=== PATIENT | female | born 1935 | race Caucasian/White ===

== ENCOUNTER 2016-08-21 10:47 | Inpatient (IN) | payer MEDICARE ==
[2016-08-21] VITALS (7 sets, daily range): BP systolic 116–156; BP diastolic 62–73; PULSE 68–83; RESP 15–20; O2SAT 96–100
[~2016-08-21] VITALS: Ht 157.5 cm; Wt 63.2 kg
[~2016-08-21 10:47] MED LIST: HYDR-4003 PO; HYDR12.5 PO; LISI2.5T66 PO; PROZ20 PO; SYN75 PO
--- NOTE | 2016-08-21 10:56 | ED.REPORT ---
HPI-Abd Pain F 40 and Over Date of Service August 21, 2016 ED Provider: History of Present Illness: was in [place] returned this am, vomiting, abd distention started in [place], 08/24 not passing gas, davin uriarte years ago. eliana is primary care. no balance mobility issues, fall risk Nursing Notes Stated Complaint: ABDOMINAL PAIN Chief Complaint: Female Abdominal Pain Nursing Notes Reviewed: Yes Allergies: Coded Allergies: No Known Allergies (Verified Allergy, Severe, 08/21/16) Scheduled Aspirin (Aspirin) 81 Mg Tablet 81 MG PO DAILY Celecoxib (Celecoxib) 200 Mg Capsule 200 MG PO DAILY Cholecalciferol (Vitamin D3) (Vitamin D3) 2,000 Unit Capsule 2,000 UNIT PO DAILY Docusate Sodium (Colace) 100 Mg Capsule 200 MG PO DAILY Fluoxetine (Prozac) 20 Mg Capsule 20 MG PO DAILY Gabapentin (Gabapentin) 300 Mg Capsule 300 MG PO HS Levothyroxine (Synthroid) 75 Mcg Tablet 75 MCG PO DAILY Multivitamin/Iron/Folic Acid (Centrum Complete Multivit Tab) 1 Each Tablet 1 TAB PO DAILY Propranolol ER (Propranolol ER) 60 Mg Cap.sa.24h 60 MG PO DAILY Vitamin E Mixed (Vitamin E) 400 Unit Capsule 400 UNIT PO DAILY Scheduled PRN ([Citrucel]) 1 TAB PO DIRECTED PRN PRN For Constipation Acetaminophen (Acetaminophen) 325 Mg Tablet 650 MG PO NOON PRN PRN For Pain Miscellaneous Medications Triamterene/HCTZ 75-50 mg (Triamterene/HCTZ 75-50 mg) 1 Each Tablet 1 TABLET PO General Time Seen by MD: 10:56 Chief Complaint Abdominal pain Hx Obtained From: Patient Sudden in Onset?: No Past Medical History Past Medical History Reports: Hypertension, Denies: Asthma, Diabetes mellitus Past Surgical History back surgery years ago davin uriarte Reports: Cholecystectomy Smoking History Former Smoker (quit at 41 years ago 08/21/2016) Social History etoh 3 to 4 times a week Occupation lives with daughter, passed 7 months ago. 08/21/2016 Ambulatory Status Independent Review of Systems Basic Review of Systems Eyes: Vision NL, No discharge ENT: Hearing NL, No pain, No nasal congestion, No pharyngeal pain Hematologic: No bleeding, No bruising Endocrine: No cold intolerance, No heat intolerance, No weight gain, No weight loss Skin: No bruising, No rash, No itch Allergy / Immune: No allergy Neurologic: NL mental status, No weakness, No numbness Psychiatric: Normal thought content Physical Exam Vital Signs Vital Signs (First) Date Time Temp Pulse Resp B/P Pulse Ox O2 Delivery O2 Flow Rate FiO2 08/21/16 10:51 36.2 83 15 125/62 100 08/21/16 13:44 Room Air Initial VS: Reviewed, Vital signs normal Head / Eyes: Atraumatic, Normocephalic, PERRL Skin: Warm, Dry, No cyanosis Psychiatric: Mood/affect normal, Behavior normal, Normal thought content General/Constitutional: Awake, Alert, No acute distress, Well appearing, Well developed, Well hydrated, Not toxic appearing Respiratory / Chest: Atraumatic, Breath sounds NL, Breath sounds = bilat, No respiratory distress Cardiovascular: Heart rate NL, Regular rhythm, Heart sounds NL, No gallop Tenderness/Guarding/Rebound: Positive: Guarding voluntary, Tender diffuse Bowel Sounds / Distention: Positive: Distention moderate Interpretation & Diagnostics Interpretation & Diagnostics: normal EKG Lab Results Interpretation Result Diagram: 08/21/16 1055 08/21/16 1055 Test 08/21/16 10:55 White Blood Count 18.0th/mm3 (3.8-10.1) Red Blood Count 3.55mil/mm3 (3.90-5.20) Hemoglobin 12.0g/dL (12.0-15.6) Hematocrit 35.6% (35.0-46.0) Mean Corpuscular Volume 100.3fL (81-100) Mean Corpuscular Hemoglobin 33.8pg (27.0-35.0) Mean Corpuscular Hemoglobin Concent 33.7% (32.0-37.0) Red Cell Distribution Width 12.7% (12.3-15.4) Platelet Count 276bil/L (150-400) Neutrophils (%) (Auto) 86.7% (40-74) Lymphocytes (%) (Auto) 7.5% (14-46) Monocytes (%) (Auto) 4.9% (4-12) Eosinophils (%) (Auto) 0.4% (0-5) Basophils (%) (Auto) 0.2% (0-3) Sodium Level 135mEq/L (134-144) Potassium Level 3.5mEq/L (3.5-5.2) Chloride Level 92mEq/L (97-108) Carbon Dioxide Level 26mmol/L (18-29) Blood Urea Nitrogen 45mg/dL (8-27) Creatinine 1.72mg/dL (0.57-1.00) Estimat Glomerular Filtration Rate 41mL/min (>59) Glucose Level 116mg/dL (60-99) Lactic Acid Level 2.0mmol/L (0.4-2.0) Calcium Level 11.4mg/dL (8.5-10.1) Total Bilirubin 0.9mg/dL (0.0-1.2) Aspartate Amino Transf (AST/SGOT) 52U/L (0-50) Alanine Aminotransferase (ALT/SGPT) 48U/L (0-32) Alkaline Phosphatase 60U/L (25-165) Troponin T 0.027ug/L (0.0-0.011) Total Protein 7.5g/dL (6.4-8.4) Albumin 4.3g/dL (3.4-5.0) Thyroid Stimulating Hormone (TSH) 3.080uIU/mL (0.450-4.500) X-Ray Interpretation Xray Interpretation: PROCEDURE: X-RAY ACUTE ABDOMINAL SERIES ([id number]) INDICATIONS: ? SBO TECHNIQUE: One view chest and two views of the abdomen were acquired. COMPARISON: None. FINDINGS: Surgical changes and devices: Lumbosacral fusion. Cholecystectomy clips. Chest: Mild patchy left basilar opacity. Heart size is normal. No pleural effusions. No pneumoperitoneum. Abdomen: Mildly distended small bowel loops within the right lower quadrant with air fluid levels are present. No suspicious calcifications. Visualized solid organ contours appear normal. Bones: No suspicious bony lesions. IMPRESSION: 1. Mildly distended small bowel loops with air-fluid levels, consistent with small bowel obstruction. 2. Left basilar atelectasis versus pneumonia. Dictated by: Daniel Mason M.D. on 08/21/2016 at 12:04 Approved by: Daniel Mason M.D. on 08/21/2016 at 12:05 CT Abd / Pelvis Interpretation ROCEDURE: CT ABDOMEN AND PELVIS WITHOUT CONTRAST ([id number]) INDICATIONS: ABd pain ?SBO TECHNIQUE: After the administration of oral contrast, 5 mm thick sections acquired from the diaphragms to the symphysis. 5 mm coronal and sagittal reformats were performed. For radiation dose reduction, the following was used: automated exposure control, adjustment of mA and/or kV according to patient size. COMPARISON: [facility], CR, XR ABD ACUTE SERIES 3VW, 08/21/2016, 11:30. [facility], CT, ABD/PELVIS W/CON (PNL), 07/03/2007, 12:10. FINDINGS: Image quality: Excellent. ABDOMEN: Lung bases: Bibasilar patchy opacities are present. Heart size is normal. Solid organs: Liver and spleen are normal in size. Gallbladder is surgically absent. Pancreas is normal in size. No adrenal nodules. Both kidneys are normal in size, without hydronephrosis or nephrolithiasis. Peritoneum and bowel: The stomach is moderately distended. The duodenum is mildly distended. There are multiple moderately distended loops of mid small bowel. There is a transition between distended and nondistended distal small bowel within the right posterior pelvis at the site of a focal region of small bowel thickening. Distal small bowel is nondistended. Appendix is normal. The colon is nondistended and demonstrates moderate diffuse stool. Diverticulosis of the descending and sigmoid colon is present. No free fluid or air. Nodes and vessels: No retroperitoneal or mesenteric adenopathy by size criteria. Aorta and inferior vena cava are normal in size. Miscellaneous: No ventral hernias. PELVIS: Genitourinary: Bladder wall thickness is normal. Miscellaneous: No inguinal hernias or adenopathy. Bones: No suspicious bony lesions. No vertebral body compression fractures. IMPRESSION: 1. Small bowel obstruction, with transition point present at a site of thickened small bowel, consistent with ischemia versus infection versus inflammation versus neoplasm. 2. Normal appendix. 3. Bibasilar atelectasis versus pneumonia. Dictated by: Daniel Mason M.D. on 08/21/2016 at 13:23 Approved by: Daniel Mason M.D. on 08/21/2016 at 13:26 Re-Eval/Medical Decision Med Decision/Clinical Course 81 year old female presents to the ER with diffuse abd pain. Patient was vacationing in [place] and started vomiting with abd pain. X-ray indicates SBO. Labs show wbc of 18 with lactic acid at 2. Consult with Dr. Alicea at to choice of antibiotics zosyn and flagyl. Navya is admitted to the hospital Consultation : Referral / Consult Name: Mart Alamo MD Consulted With: Surgeon Call Returned at: 14:15 Theatrical Rigger: Agrees with plan Note: I (Dr. Christian) discussed case with surgeon Dr. Alamo. Surgery will follow and consult. Discharge & Departure Primary Impression: Small bowel obstruction Additional Impressions: Acute kidney injury Elevated troponin Disposition: ADMITTED TO HOSPITAL Referrals: Eliseo Rodríguez MD (PCP) EDSupervising Provider for APC: Adelso Christian MD Attending Statement This patient was initially seen by the mid-level provider. However I personally interviewed and examined this patient. Some pleasant 81-year-old female with a history of prior cholecystectomy without prior diagnosis of bowel obstruction due some abdominal discomfort starting Monday night while ago while in [place]. Symptoms worsened on Monday she developed a low-grade fever, abdominal pain and vomiting, she reports no flatus -she does, she passed a "pellets" of stool this morning, she does continue not have any flat S I discontinue abdominal pain and nausea. She decided return-so she got on a plane the family, and from the airport in [place], vehicle and drove directly here. Not had a david fever today, she denies chills. She complains of some diffuse abdominal pain and ongoing nausea. Luis M she is fatigued, but not febrile. She appears mildly dehydrated and has nausea and vomiting. Abdomen has mild tenderness without david guarding or overt peritonitis. Plain films are suspicious for bowel obstruction, and CT imaging was pursued. CT is positive for bowel obstruction with transition point in the small intestine. Blood work is notable for marked leukocytosis and a moderate renal insufficiency, certainly this may represent acute kidney injury in the setting of dehydration. She has a marginal troponin elevation that I suspect is most likely to the renal insufficiency (creatitine was normal on last values of 2013) , I was unable to get any cardiopulmonary symptoms to suggest an acute coronary syndrome, EKG is entirely normal. History of subjective fever, and the leukocytosis, empiric antibiotics are being initiated. The patient is receiving IV fluids. I personally placed the NG tube following administration of bupivacaine with epinephrine, oxymetazoline, and 1 mg of Versed to facilitate NG tube placement with additional viscous lidocaine. Immediately return approximate 600+ mL of bilious material was obtained. The patient is being admitted to the hospitalist service, and I consult surgery and discussed the case with Dr. Alamo who will follow. copies to: Eliseo Rodríguez MD, Sue ARNP August 21, 2016 10:56 Adelso Christian MD August 21, 2016 14:20
[2016-08-21] MEDS ORDERED: CELE-67 PO (10:58)
[2016-08-21] MEDS ORDERED: VITA400C64 PO (10:58)
[2016-08-21] MEDS ORDERED: DOCU-41 PO (10:58)
[2016-08-21] MEDS ORDERED: TRIA1TAB5 PO (10:58)
[2016-08-21] MEDS ORDERED: ASPI-973 PO (10:58)
[2016-08-21] MEDS ORDERED: CHOL200047 PO (10:58)
[2016-08-21] MEDS ORDERED: PROP60CA2 PO (10:58)
[2016-08-21] MEDS ORDERED: MULT-1105 PO (10:58)
[2016-08-21] MEDS ORDERED: GABA600T2 PO (10:58)
[2016-08-21] MEDS ORDERED: [UNRECOGNIZED DRUG - OTHER] PO (10:58)
[2016-08-21] MEDS ORDERED: 0.9% Sodium Chloride 1,000 ML IV ONE (11:10)
[2016-08-21] MEDS ORDERED: Ondansetron 2 mg/mL 2 mL Inj IVPUSH ONE (11:10)
[2016-08-21 11:20] LABS: BASOPHILS % (AUTO) 0.2 % (0-3); EOSINOPHILS % (AUTO) 0.4 % (0-5); MONOCYTES % (AUTO) 4.9 % (4-12); Mean Corpuscular Hemoglobin 33.8 pg (27.0-35.0); Mean Corpuscular Volume 100.3 fL (81-100); NEUTROPHILS % (AUTO) 86.7 % (40-74); Platelet Count 276 bil/L (150-400)
[2016-08-21 11:51] LABS: TROPONIN T 0.027 ug/L (0.0-0.011)
[2016-08-21] MEDS ORDERED: Iohexol Inj 30 ML ONE (12:01)
--- NOTE | 2016-08-21 12:06 | DRSVH ---
PROCEDURE: X-RAY ACUTE ABDOMINAL SERIES ([id number]) INDICATIONS: ? SBO TECHNIQUE: One view chest and two views of the abdomen were acquired. COMPARISON: None. FINDINGS: Surgical changes and devices: Lumbosacral fusion. Cholecystectomy clips. Chest: Mild patchy left basilar opacity. Heart size is normal. No pleural effusions. No pneumoperi toneum. Abdomen: Mildly distended small bowel loops within the right lower quadrant with air fluid levels are present. No suspicious calcifications. Visualized solid organ contours appear normal. Bones: No suspicious bony lesions. IMPRESSION: 1. Mildly distended small bowel loops with air-fluid levels, consistent with small bowel obstruction. 2. Left basilar atelectasis versus pneumonia. Dictated by: Daniel Mason M.D. on 08/21/2016 at 12:04 Approved by: Daniel Mason M.D. on 08/21/2016 at 12:05
[2016-08-21] MEDS ORDERED: Iohexol 300 mg/mL 30 mL Inj PO ONE (12:10)
[2016-08-21] MEDS ORDERED: metroNIDAZOLE Inj 1,000 MG in IV Premix 1 EACH IV ONE (12:15)
[2016-08-21] MEDS ORDERED: Piperacillin-Tazo 3.375 Gm Inj 3.375 GM in Dextrose 5% Minibag Plus 50 ML IV ONE (12:15)
[2016-08-21] MEDS ORDERED: 0.9% Sodium Chloride 1,000 ML IV SCH (12:20)
--- NOTE | 2016-08-21 13:28 | DRSVH ---
PROCEDURE: CT ABDOMEN AND PELVIS WITHOUT CONTRAST ([id number]) INDICATIONS: ABd pain ?SBO TECHNIQUE: After the administration of oral contrast, 5 mm thick sections acquired from the diaphragms to the sy mphysis. 5 mm coronal and sagittal reformats were performed. For radiation dose reduction, the foll owing was used: automated exposure control, adjustment of mA and/or kV according to patient size. COMPARISON: [facility], CR, XR ABD ACUTE SERIES 3VW, 08/21/2016, 11:30. [facility], CT, ABD/PELVIS W/CON (PNL), 07/03/2007, 12:10. FINDINGS: Image quality: Excellent. ABDOMEN: Lung bases: Bibasilar patchy opacities are present. Heart size is normal. Solid organs: Liver and spleen are normal in size. Gallbladder is surgically absent. Pancreas is n ormal in size. No adrenal nodules. Both kidneys are normal in size, without hydronephrosis or nephr olithiasis. Peritoneum and bowel: The stomach is moderately distended. The duodenum is mildly distended. There ar e multiple moderately distended loops of mid small bowel. There is a transition between distended and nondistended distal small bowel within the right posterior pelvis at the site of a focal region of s mall bowel thickening. Distal small bowel is nondistended. Appendix is normal. The colon is nondisten ded and demonstrates moderate diffuse stool. Diverticulosis of the descending and sigmoid colon is pr esent. No free fluid or air. Nodes and vessels: No retroperitoneal or mesenteric adenopathy by size criteria. Aorta and inferior vena cava are normal in size. Miscellaneous: No ventral hernias. PELVIS: Genitourinary: Bladder wall thickness is normal. Miscellaneous: No inguinal hernias or adenopathy. Bones: No suspicious bony lesions. No vertebral body compression fractures. IMPRESSION: 1. Small bowel obstruction, with transition point present at a site of thickened small bowel, consist ent with ischemia versus infection versus inflammation versus neoplasm. 2. Normal appendix. 3. Bibasilar atelectasis versus pneumonia. Dictated by: Daniel Mason M.D. on 08/21/2016 at 13:23 Approved by: Daniel Mason M.D. on 08/21/2016 at 13:26
[2016-08-21] MEDS ORDERED: Alum-Mag Hydrox-Simeth 30 mL Suspension PO PRN (14:35)
[2016-08-21] MEDS ORDERED: Promethazine 50 mg/mL Inj IM PRN (14:45)
--- NOTE | 2016-08-21 15:01 | PCM.HPMED ---
Subjective Date of Service August 21, 2016 Primary Provider: Admitting Physician: Dino Bryson MD Primary Care Physician: Eliseo Rodríguez MD Attending Physician: Dino Bryson MD Chief Complaint: abdominal pain, nausea, vomiting. History of Present Illness: 81yo lady with reported hx of htn, hypothyroidism, hld, depression vacationing in [place] over the past few days. 3 days ago started not feeling well. generalized abd pain, dec appetitie and po intake, nausea, vomiting. has not had bowel movement or passed significant gas to her knowledge in the past 3- 4 days. feels a little relief with ng tube placed. denies chest pain, dypsnea. has some chills earlier. has not had bowel obstructions before. reports a normal colonoscopy in the past. hx of cosmetic abdominal surgery and cholecystectomy. Review of Systems: Positive Review of Symptoms mentioned and elaborated on in HPI. Head: Denies H/A, trauma, loss of consciousness. Eyes: Denies visual loss, diplopia. Ears: Denies: deafness, tinnitis, discharge, pain Nose: Denies discharge, obstruction, epistaxis Mouth: Denies sores, gingival bleeding, jaw pain Neck: Denies stiffness, issues swallowing. Respiratory: Denies dyspnea, cough, sputum. Cardiovascular:Denies CP, palpitations, orthopnea, peripheral edema Gastrointestinal: see hpi Denies melena Genitourinary: Denies dysuria, discharge. Skin: Denies: lesions, rashes, pruritus. Musculoskeletal: Denies joint pain, swelling or increased warmth. Neuro: Denies numbness, tingling, weakness. Psyc: Currently denies feelings of anxiety, depression. Allergies Coded Allergies: No Known Allergies (Verified Allergy, Severe, 08/21/16) Home Medications see med rec PMH as mentioned in hpi Surgical History as mentioned in hpi Family History denies hx of GI disease, malignancy Social History Hx Alcohol Use: Yes Hx Substance Use: No Smoking Status: Former Smoker (quit at 41 years ago 08/21/2016) Exam Vital Signs Vital Sign - Last Date Time Temp Pulse Resp B/P Pulse Ox O2 Delivery O2 Flow Rate FiO2 08/21/16 13:44 68 20 116/62 96 Room Air 08/21/16 10:51 36.2 Exam General: No acute distress. Awake, alert. Head: Normocephalic, atraumatic. Eyes: White sclera. Conjunctiva non-injected. Mouth & Throat: No Bleeding. No erythema, lesions, exudates visualized. Neck: No tender adenopathy. Trachea midline. Respiratory: Clear to auscultation bilaterally. Symmetric chest expansion. Regular work of breathing without use of accessory muscles. Cardiovascular: S1, S2. Regular rate and rhythm without murmurs, rubs or gallops. Pulses 2+ equal bilaterally. Abdomen: Normal bowel sounds x4 quadrants. Soft, non-tender, mild distension. no rebound tenderness or peritoneal signs. Extremities: Intact. no joint effusions. no lower extremity tenderness, swelling, erythema or increased warmth. Skin: Intact, no lesions, no rash. Neurologic: Awake, alert, oriented x3. No focal deficits. Psychiatric: Appropriate mood and affect. Cooperative. Lab and Diagnostics Result Diagram: 08/21/16 1055 08/21/16 1055 X-Rays, CTs and MRIs Date of Service: 08/21/16 1216 PROCEDURE: CT ABDOMEN AND PELVIS WITHOUT CONTRAST ([id number]) INDICATIONS: ABd pain ?SBO TECHNIQUE: After the administration of oral contrast, 5 mm thick sections acquired from the diaphragms to the symphysis. 5 mm coronal and sagittal reformats were performed. For radiation dose reduction, the following was used: automated exposure control, adjustment of mA and/or kV according to patient size. COMPARISON: [facility], CR, XR ABD ACUTE SERIES 3VW, 08/21/2016, 11: 30. [facility], CT, ABD/PELVIS W/CON (PNL), 07/03/2007, 12:10. FINDINGS: Image quality: Excellent. ABDOMEN: Lung bases: Bibasilar patchy opacities are present. Heart size is normal. Solid organs: Liver and spleen are normal in size. Gallbladder is surgically absent. Pancreas is normal in size. No adrenal nodules. Both kidneys are normal in size, without hydronephrosis or nephrolithiasis. Peritoneum and bowel: The stomach is moderately distended. The duodenum is mildly distended. There are multiple moderately distended loops of mid small bowel. There is a transition between distended and nondistended distal small bowel within the right posterior pelvis at the site of a focal region of small bowel thickening. Distal small bowel is nondistended. Appendix is normal. The colon is nondistended and demonstrates moderate diffuse stool. Diverticulosis of the descending and sigmoid colon is present. No free fluid or air. Nodes and vessels: No retroperitoneal or mesenteric adenopathy by size criteria. Aorta and inferior vena cava are normal in size. Miscellaneous: No ventral hernias. PELVIS: Genitourinary: Bladder wall thickness is normal. Miscellaneous: No inguinal hernias or adenopathy. Bones: No suspicious bony lesions. No vertebral body compression fractures. IMPRESSION: 1. Small bowel obstruction, with transition point present at a site of thickened small bowel, consistent with ischemia versus infection versus inflammation versus neoplasm. 2. Normal appendix. 3. Bibasilar atelectasis versus pneumonia. Dictated by: Daniel Mason M.D. on 08/21/2016 at 13:23 Approved by: Daniel Mason M.D. on 08/21/2016 at 13:26 Assessment & Plan -- small bowel obstruction cont ng tube. pain control. ivf. npo surgery Dr. Alamo consulted by emergency department. no peritoneal signs on abd exam. cont abx for now. f/u blood cx. pt eval. -- elevated troponin no chest pain or dyspnea. no emergent ekg findings. may be secondary to demand ischemia cont to monitor. serial troponin, echocardiogram. further cardiac diagnostics, rx as necessary -- acute kidney insufficiency ivf. cont to monitor. no obstruction seen on ct scan. horner if necessary -- htn -- hypothyroidism -- hld -- depression cont med managment as toelrated. f/e/n: npo dispo: admit to inpt tele with expected LOS >2 midnights. VTE Prophylaxis: Sub-Q Heparin (Unfractionated) Dino Bryson MD August 21, 2016 15:01
[2016-08-21] MEDS: Lactated Ringer's 1,000 ML IV SCH (15:38)
[2016-08-21] MEDS: Heparin 5,000 Unit/mL Inj SUBQ SCH (15:42)
--- NOTE | 2016-08-21 16:24 | CONS ---
[address] [address] CONSULTATION REPORT PATIENT: KAREN ROMERO : 1935 MR#: [id number] ADMIT: 08/21/2016 JOB ID: [id number] DATE OF SERVICE: 08/21/2016 CHIEF COMPLAINT: SBO, abdominal pain, nausea, vomiting. HISTORY OF PRESENT ILLNESS: The patient is an 81-year-old female who presented to the emergency department today due to abdominal pain and nausea, vomiting. The patient just got off a plane coming back from [place], and she came straight to the hospital. The patient had a luau on [facility] Monday night, and Monday morning, around 2 a.m., started to have generalized abdominal pain associated with nausea, vomiting. According to one of the daughters, she felt warm and she did have some chills. They treated her with some Tylenol with some effect. However, due to the persistence of her abdominal discomfort and nausea, vomiting, the patient got on the plane today and flew back to [facility] and came straight from the airport to the hospital. Workup in the emergency department today included a CBC that showed an elevated white blood count of 18 and this was also followed by an abdominal x-ray and a CT scan that suggests small bowel obstruction. They do see a transition point present at the site of thickened small bowel. Currently, the NG tube is in place. NG tube had put out 900 cc in the ED. She has never had an episode of small bowel obstruction previously. The patient does have some chronic constipation as baseline. She did have a small pellet- like stool this morning but no flatus. PAST MEDICAL HISTORY: Hypertension, back surgery, tummy tuck, cholecystectomy, history of pneumonia, and arthritis. MEDICATIONS AT HOME: Include baby aspirin, hydrocodone, vitamins, fluoxetine, gabapentin, hydrochlorothiazide, levothyroxine, lisinopril, propranolol, triamterene/HCTZ. ALLERGIES: None. SOCIAL HISTORY: The patient lives with one of her daughters in [place]. She has two daughters. One of the daughters is a night charge nurse on [employer]. FAMILY HISTORY: Positive for stroke and arthritis. REVIEW OF SYSTEMS: Positive for the abdominal pain, nausea, vomiting, chronic constipation, chills, and questionable fever. All other systems review were negative. PHYSICAL EXAMINATION: The patient is currently in the hospital bed in no acute distress. An NG tube is in place. Her BMI is 25.5. Temperature is 36.6, blood pressure 149/73, pulse is 72, respirations 15. Head is normocephalic, atraumatic. There is no scleral icterus. Neck is supple. Heart is regular rate. Lungs are clear. Abdomen slightly protuberant. It is soft and nontender in the upper abdomen but in the mid low abdomen, it is tender to palpation. There is no rebound at this time. Extremities show no clubbing and no cyanosis. Neurologically, the patient does open her eyes and able to converse when questioned. LABORATORY EXAMINATION: Today shows a white blood count of 18, hematocrit 35.6, platelet count is 276. Sodium is 135, potassium 3.5, creatinine 1.72. Lactate is 2.0. Total bilirubin 0.9 and troponin level of 0.027. ASSESSMENT: This is an 81-year-old female with a small bowel obstruction which started yesterday morning while in [place].. The patient does not have a prior history of small bowel obstruction which required hospitalization. The patient has had a cholecystectomy in the past. We will repeat her abdominal x-rays in the morning and also repeat a CBC in the morning. She's currently not tachycardic. If clinically she does not progress with an NG tube, then she will require a laparotomy or diagnostic laparoscopy. The plan and the options were discussed with the patient and her two daughters and they both understand and agree. MARIANO
[2016-08-21] MEDS ORDERED: GABA-502 PO (16:29)
[2016-08-21] MEDS ORDERED: ACET325T51 PO (16:29)
[2016-08-21] MEDS ORDERED: PROZ20 PO (16:29)
[2016-08-21] MEDS ORDERED: SYN75 PO (16:29)
[2016-08-21] MEDS ORDERED: CITRUCEL PO (16:29)
[2016-08-21] MEDS ORDERED: FOLI-52 PO (16:29)
--- NOTE | 2016-08-21 17:54 | NUR ---
ADMIT Patient received from the ED. IVF infusing at this time. On O2 at 2 LPM via NC. Patient placed on a continuos PO2 d/to medications received from the ED. NGT intact and attached to continuous suction per ED report. Will get further orders from inpatient MD. Patient denies pain/nausea/SOB. Placed on remote tele. Per television service engineer patient is on sinus rhythm; HR 70's. Oriented to room, call light and bathroom. *Med rec entered. Dr. Bryson made aware RE: Med rec is ready to be reviewed.
[2016-08-21 18:21] LABS: APPEARANCE,URINE HAZY (CLEAR,HAZY); COLOR,URINE YELLOW (YELLOW); OCCULT BLOOD,URINE SMALL (NEGATIVE); PH,URINE 5.5 (5.0-8.0); UROBILINOGEN,URINE NORMAL (NORMAL)
[2016-08-21] MEDS ORDERED: Benzocaine (Hurricaine) 20% Unit-Dose Spray MUC_MEMBRM PRN (22:30)
[2016-08-22] VITALS (8 sets, daily range): BP systolic 139–165; BP diastolic 69–82; PULSE 64–83; RESP 15–24; O2SAT 91–95
[2016-08-22] MEDS: Piperacillin-Tazo 3.375 Gm Inj 3.375 GM in Dextrose 5% Minibag Plus 50 ML IV SCH ×2 (01:41→12:43)
[2016-08-22] MEDS: Heparin 5,000 Unit/mL Inj SUBQ SCH ×3 (01:44→17:37)
[2016-08-22] MEDS: Lactated Ringer's 1,000 ML IV SCH ×3 (01:44→16:45)
[2016-08-22 05:49] LABS: BASOPHILS % (AUTO) 0.2 % (0-3); EOSINOPHILS % (AUTO) 3.9 % (0-5); MONOCYTES % (AUTO) 3.9 % (4-12); Mean Corpuscular Hemoglobin 34.2 pg (27.0-35.0); Mean Corpuscular Volume 102.1 fL (81-100); NEUTROPHILS % (AUTO) 81.4 % (40-74); Platelet Count 232 bil/L (150-400)
[2016-08-22 06:10] LABS: Magnesium 1.5 mg/dL (1.6-2.6)
[2016-08-22 06:35] LABS: INR 0.99 ratio
--- NOTE | 2016-08-22 07:03 | NUR ---
Mobility/Pain Pt got up with daughter and ambulated in hallway with walker. She ambulated well and is open to using a walker at home now for stability and safety. No complaints of pain, just mild discomfort and chose not to have pain medication during this shift. NG tube running intermittent per order, small amount of green liquid being pulled out. Hurricane spray ordered by physician PRN, however, pt chose not to use during this shift.
[2016-08-22] MEDS ORDERED: KCl 40 mEq/D5W 500 mL 40 MEQ in IV Premix 1 EACH IV ONE (07:25)
[2016-08-22] MEDS ORDERED: Magnesium Sulf 2 Gm/50mL Water 2 GM in IV Premix 1 EACH IV ONE (08:10)
--- NOTE | 2016-08-22 08:59 | DRSVH ---
PROCEDURE: X-RAY ABDOMEN WITH ERECT AND/OR DECUBITUS VIEWS ([id number]) INDICATIONS: SMALL BOWEL OBSTRUCTION TECHNIQUE: 2 views of the abdomen were acquired. COMPARISON: [facility], CR, XR ABD ACUTE SERIES 3VW, 08/21/2016, 11:30. FINDINGS: Surgical changes and devices: Surgical clips in the right upper quadrant, lower lumbar spinal instrum entation noted. There is a enteric tube with the tip projecting in the stomach. Bowel: No pneumoperitoneum. The bowel gas pattern is mildly improved, with respect to the previous prominent right-sided bowel loops. There are persistent air-fluid levels. There is moderate stool. Soft tissues: No masses; visualized solid organ contours appear normal in size. No suspicious abdom inal calcifications. Bones: No suspicious bony abnormalities. Bilateral mild hip degeneration. There is scoliosis and sca ttered discogenic changes. IMPRESSION: Improved appearance of primarily right-sided dilated bowel loops since 08/21/16. Persistent scattered a ir-fluid levels. Recommend continued radiographic surveillance if the patient's symptoms do not impro ve Dictated by: Nahid Green M.D. on 08/22/2016 at 8:52 Approved by: Nahid Green M.D. on 08/22/2016 at 8:57
[2016-08-22] MEDS: Acetaminophen IV 1,000 MG in IV Premix 1 EACH IV PRN ×3 (09:31→23:12)
--- NOTE | 2016-08-22 09:33 | DRSVH ---
PROCEDURE: X-RAY CHEST ONE VIEW, PORTABLE ([id number]) INDICATIONS: cough TECHNIQUE: One view of the chest was acquired. COMPARISON: [facility], CR, CHEST 2VW, 10/01/2006, 8:03. [facility], CR, XR ABD ACUTE SERIES 3VW, 08/21/2016, 11:30. FINDINGS: Surgical changes and devices: Nasogastric tube present tip projected over the gastric antrum. Lungs and pleura: No pleural effusions or pneumothorax. Patchy opacity involving the left lung base similar to prior examination. Mediastinum: Mediastinal contours appear normal. Heart size is enlarged. Bones and chest wall: No suspicious bony lesions. Overlying soft tissues appear unremarkable. IMPRESSION: Left basilar atelectasis versus aspiration or pneumonia. Dictated by: Fredrick GILLESPIE Interpreted: Nery Zepeda MD on 08/22/2016 at 9:32 Transcribed by: YULIYA on 08/22/2016 at 9:33 Approved by: Nery Zepeda M.D. on 08/23/2016 at 16:55
--- NOTE | 2016-08-22 12:40 | PCM.PNMED ---
Subjective Date of Service August 22, 2016 Subjective feels a little better. ng tube still uncomfortable. abd pain improved a little. having a little bit of difficulty breathing. no chest pain, fevers, chills, headache. Exam Vital Signs Vital Sign - Last Date Time Temp Pulse Resp B/P Pulse Ox O2 Delivery O2 Flow Rate FiO2 08/22/16 10:58 36.8 65 15 139/69 95 Nasal Cannula 2.00 Intake and Output 08/21/16 08/21/16 08/22/16 Cumulative From/Thru 15:00 23:00 07:00 08/21/16 10:51 - 08/22/16 06:30 Intake Total 1000 ml 0 ml 1400 ml 2400 ml Output Total 450 ml 450 ml Balance 1000 ml -450 ml 1400 ml 1950 ml Intake Oral 0 ml 0 ml IV Total 1000 ml 1400 ml 2400 ml Output Urine Total 300 ml 300 ml Gastric Drainage Total 150 ml 150 ml Exam General: No acute distress. Awake, alert. Head: Normocephalic, atraumatic. Eyes: White sclera. Conjunctiva non-injected. Mouth & Throat: No Bleeding. No erythema, lesions, exudates visualized. Neck: No tender adenopathy. Trachea midline. Respiratory: dec breath sounds L lung base otherwise cta. Cardiovascular: S1, S2. Regular rate and rhythm without murmurs, rubs or gallops. Pulses 2+ equal bilaterally. Abdomen: Normal bowel sounds x4 quadrants. Soft, non-tender, mild distension. no rebound tenderness or peritoneal signs. overall exam improved from yest. Extremities: Intact. no joint effusions. no lower extremity tenderness, swelling, erythema or increased warmth. Skin: Intact, no lesions, no rash. Neurologic: Awake, alert, oriented x3. No focal deficits. Psychiatric: Appropriate mood and affect. Cooperative. Lab and Diagnostics Result Diagram: 08/22/16 0510 08/22/16 0510 X-Rays, CTs and MRIs Date of Service: 08/21/16 1216 PROCEDURE: CT ABDOMEN AND PELVIS WITHOUT CONTRAST ([id number]) INDICATIONS: ABd pain ?SBO TECHNIQUE: After the administration of oral contrast, 5 mm thick sections acquired from the diaphragms to the symphysis. 5 mm coronal and sagittal reformats were performed. For radiation dose reduction, the following was used: automated exposure control, adjustment of mA and/or kV according to patient size. COMPARISON: [facility], CR, XR ABD ACUTE SERIES 3VW, 08/21/2016, 11: 30. [facility], CT, ABD/PELVIS W/CON (PNL), 07/03/2007, 12:10. FINDINGS: Image quality: Excellent. ABDOMEN: Lung bases: Bibasilar patchy opacities are present. Heart size is normal. Solid organs: Liver and spleen are normal in size. Gallbladder is surgically absent. Pancreas is normal in size. No adrenal nodules. Both kidneys are normal in size, without hydronephrosis or nephrolithiasis. Peritoneum and bowel: The stomach is moderately distended. The duodenum is mildly distended. There are multiple moderately distended loops of mid small bowel. There is a transition between distended and nondistended distal small bowel within the right posterior pelvis at the site of a focal region of small bowel thickening. Distal small bowel is nondistended. Appendix is normal. The colon is nondistended and demonstrates moderate diffuse stool. Diverticulosis of the descending and sigmoid colon is present. No free fluid or air. Nodes and vessels: No retroperitoneal or mesenteric adenopathy by size criteria. Aorta and inferior vena cava are normal in size. Miscellaneous: No ventral hernias. PELVIS: Genitourinary: Bladder wall thickness is normal. Miscellaneous: No inguinal hernias or adenopathy. Bones: No suspicious bony lesions. No vertebral body compression fractures. IMPRESSION: 1. Small bowel obstruction, with transition point present at a site of thickened small bowel, consistent with ischemia versus infection versus inflammation versus neoplasm. 2. Normal appendix. 3. Bibasilar atelectasis versus pneumonia. Dictated by: Daniel Mason M.D. on 08/21/2016 at 13:23 Approved by: Daniel Mason M.D. on 08/21/2016 at 13:26 Date of Service: 08/22/16 0808 Caution: Report not yet finalized and possibly incomplete! PROCEDURE: X-RAY CHEST ONE VIEW, PORTABLE ([id number]) INDICATIONS: cough TECHNIQUE: One view of the chest was acquired. COMPARISON: [facility], CR, XR ABD ACUTE SERIES 3VW, 08/21/2016, 11: 30. FINDINGS: Surgical changes and devices: Nasogastric tube present tip projected over the gastric antrum. Lungs and pleura: No pleural effusions or pneumothorax. Patchy opacity involving the left lung base similar to prior examination. Mediastinum: Mediastinal contours appear normal. Heart size is enlarged. Bones and chest wall: No suspicious bony lesions. Overlying soft tissues appear unremarkable. IMPRESSION: Left basilar atelectasis versus aspiration or pneumonia. Dictated by: Fredrick Trujillo RRA Interpreted: Nery Zepeda MD on 08/22/2016 at 9: 32 Transcribed by: YULIYA on 08/22/2016 at 9:33 Assessment & Plan -- small bowel obstruction cont ng tube. pain control. ivf. npo cont abx for now. f/u blood cx. repeat xray showed some improvement. surgery team following. -- aspiration pna f/u cultures. may have been from vomiting con abx. supplemental O2. -- elevated troponin trended down to normal range no chest pain or dyspnea. no emergent ekg findings. may be secondary to demand ischemia f/u echo. -- acute kidney insufficiency ivf. cont to monitor. no obstruction seen on ct scan. horner if necessary -- htn -- hypothyroidism -- hld -- depression cont med managment as toelrated. f/e/n: npo dispo: pending clinical status. surgical dispo. VTE Prophylaxis: Sub-Q Heparin (Unfractionated) VTE Mechanical Devices: Intermittant Pneumatic CD Dino Bryson MD August 22, 2016 12:40
--- NOTE | 2016-08-22 12:54 | NUR ---
ACTIVITY/GI Patient complained of throat pain. No complaints of abdominal pain voiced. IV APAP administered. Via FELDT scale patients pain level was 0/10 after her pain medication. Throat spray administered, which was not effective. Patient stated that she had some burning sensation after the spray but continues to have pain. Denies nausea. No emesis noted. Denies SOB. Ambulated in the hallway with 1 PA/SBA with the FWW. Tolerated activity fairly. Patient is on tele. Per telehealth case manager patient is on sinus rhythm; HR 70's. Hypoactive BS. Continues to have no flatus.
--- NOTE | 2016-08-22 13:09 | PROG NOTE ---
[address] [address] PROGRESS NOTE PATIENT: KAREN ROMERO : 1935 MR#: [id number] ADMIT: 08/21/2016 JOB ID: [id number] DATE: The patient subjectively feels much better than when she 1st arrived. Her nasogastric tube drainage is recorded at 150 cc since placement, but there is at least 400 cc of bilious fluid in her canister that I see. She tells me she is still not passing gas, has not had a bowel movement. She says her pain is much better. On examination, she remains distended with tympany. There are no groin hernias. There is no focal tenderness. Her white count is down to 11.5, her hematocrit is 29.2. Her MCV remains elevated at 102. Repeat chemistries are normal except for potassium of 3.2. Her creatinine is down to 1.06 from 1.72 yesterday. Her troponin has normalized. Albumin is 3.4. Repeat abdominal films to my review show a less dilated loop of small bowel but persistent air-fluid levels. Chest x-ray shows some atelectasis but no free air. IMPRESSION/PLAN: An 81-year-old woman with a previous surgical history of section and laparoscopic cholecystectomy with a high-grade small bowel obstruction. Her subjective and objective improvement is consistent with adequate NG decompression, but at this point, we do not see signs of her bowel obstruction truly resolving. Discussed options with the patient and her daughter and I recommended repeat examination later on today, repeat films 1st thing tomorrow morning, and if she does not show near-complete resolution of her symptoms and x-rays by tomorrow morning, that we operate on her tomorrow morning, specifically laparoscopic lysis of adhesions. They are amenable to this option. I will re-examine her later on today.
--- NOTE | 2016-08-22 16:15 | NUR ---
Social Work-initial assessment data:see initial assessment. Pt is a 81 y/o female who was admitted on 08/21/16 for SBO per H&P. Pt's insurance is [employer] and PCP is Eliseo Rodríguez MD. EMR reviewed.Pt's readmission score is 2. SW met with pt at bedside to discuss discharge planning, SW role explained. Pt is alert and oriented x3. pt resides at home with her daughter Sari, who is home all day with her, where he remains independent with ADLS. Pt does not drive and does uses a cane at baseline. Pt has no HH or SNF history. Pt has no intermission coordinator care or VA benefits. SW discussed DPOA/ advanced directive, pt confirms she has completed this, SW encouraged a copy to be brought in. PT evaluation is pending. Pt remains with NG Tube in place. Pt states her daughter will provide transport at discharge. SW provided phone number and plan on white board in room. SW to follow up post PT evaluation. SW will continue to follow Assessment:Pt who is independent at baseline. Plan:Pt to discharge home when medically stable via POV. Pt remains with NG tube in place. SW to follow up post PT evaluation. SW will continue to follow. HERBIE Briones Addendum: 08/22/16 at 1618 by HARMONY REGALADO SS Amended: Links added.
--- NOTE | 2016-08-22 17:51 | DRSVH ---
[facility] [address] [place] [address] Echocardiogram Report Name: KAREN ROMERO Study Date: 08/22/2016 Height: 62 in Hospital Exam Location: [facility] Weight: 139 lb Gender: Female BSA: 1.6 m2 : 1935 Age: 81 yrs BP: 139/69 mmHg Reason For Study: ELEVATED TROPONIN Ordering Physician: HOSPITALIST [facility] Performed By: Jacqueline Chávez Referring Physician: Dr. Eliseo Rodríguez Interpretation Summary The left ventricle is normal in size. There appears to be moderate to severe hypokinesis of distal posterolateral wall. The ejection fraction is estimated to be 55-60%. The right ventricle is normal in size and function. There is moderate mitral regurgitation. There is mild to moderate aortic regurgitation. There is mild tricuspid regurgitation. The right ventricular systolic pressure is estimated at 42 mmHg assuming a right atrial pressure of 3 mm Hg. The ascending aorta is mildly enlarged. Procedure: A two-dimensional transthoracic echocardiogram with color flow and Doppler was performed. The study quality was technically adequate. There is no prior echocardiogram noted for this patient. The patient was in normal sinus rhythm during the exam. Left Ventricle: The left ventricle is normal in size. Proximal septal thickening is noted. There is no echo evidence for significant left ventricular outflow tract obstruction. There is no thrombus. The ejection fraction is estimated to be 55-60%. There appears to be moderate to severe hypokinesis of distal posterolateral wall. Spectral Doppler of the mitral valve shows a normal E/A wave ratio. The E/E' ratio is abnormal. Right Ventricle: The right ventricle is normal in size and function. Atria: The left atrium is moderately dilated. Right atrial size is normal. There is no Doppler evidence for an atrial septal defect. Mitral Valve: There is mild mitral annular calcification. The mitral valve leaflets are slightly calcified. There is moderate mitral regurgitation. Aortic Valve: The aortic valve is trileaflet. The aortic valve opens well. There is no aortic valve stenosis. There is mild to moderate aortic regurgitation. Tricuspid Valve: The tricuspid valve is normal. There is mild tricuspid regurgitation. The right ventricular systolic pressure is estimated at 42 mmHg assuming a right atrial pressure of 3 mm Hg. Pulmonic Valve: The pulmonic valve is not well seen, but is grossly normal. There is trace pulmonic regurgitation. Great Vessels: The aortic root is normal size. The ascending aorta is mildly enlarged. The pulmonary artery is normal size. The IVC is of normal diameter and collapses greater than 50% with a sniff. This suggests a low right atrial pressure of 3 mm Hg. Pericardium/ Pleura There is no pericardial effusion. There is no pleural effusion. MMode/2D Measurements & Calculations LVIDd: 4.3 cm LA dimension: 4.0 cm RA long axis LVOT diam: 2.0 cm LVIDs: 2.7 cm Ao root diam FS: 39.0 % LA A2 area: 23.1 cm RA area EPSS: 0.40 cm LA A4 area: 21.7 cm Aortic Jxn: 3.0 cm IVSd: 1.1 cm LA length (vol) : 16.0 cm asc Aorta Diam LVPWd: 0.91 cm RA vol LA vol: 69.4 ml : 46.7 ml Ao Arch Diam (Prox LA vol index RA Trans): 2.3 cm : 28.5 mm2 IVC diam: 1.9 cm LV chun. diameter/BSA LV sys. diameter/BSA (cm/m^2): 2.7 (cm/m^2): 1.6 Doppler Measurements & Calculations Ao V2 max MV E max jonnathan MV E/A: 1.3 TR max jonnathan : 114.0 cm/sec : 108.7 cm/sec Med Peak E' Jonnathan : 310.5 cm/sec Ao max P.2 mmHgMV A max jonnathan TR max PG Ao mean PG : 80.6 cm/sec E/E' med: 22.9 : 38.6 mmHg MV P1/2t: 45.5 msec Lat Peak E' Jonnathan PA V2 max LVOT Max Jonnathan : 68.1 cm/sec : 98.1 cm/sec MR ERO: 0.07 cm2 E/E' lat: 14.8 PA mean PG E/e' average: 18.9 BRIGIDO(I,D): 2.4 cm Pulm A Revs Dur PA Accel Time sev ratio: 0.81 : 0.19 sec AI P1/2t MV A dur: 0.13 sec : 352.2 msec AI dec slope : 376.6 cm/s2c MV P1/2t max jonnathan Ao V2 mean LV V1 max PG MR flow rate : 79.7 cm/sec : 44.2 cm3/sec MVA(P1/2t): 4.8 cm2Ao V2 VTI: 26.5 cm LV V1 VTI: 21.5 cm MR PISA radius BRIGIDO(V,D): 2.6 cm2 PA V2 mean BRIGIDO indexed to BSA Pulm A Revs Dur - MV : 49.7 cm/sec (cm^2/m^2): 1.5 A Dur: 0.00 msec Reading Physician:PM
[2016-08-23 00:16] VITALS: BP 151/71; PULSE 72; RESP 18; O2SAT 93
[2016-08-23] MEDS: Piperacillin-Tazo 3.375 Gm Inj 3.375 GM in Dextrose 5% Minibag Plus 50 ML IV SCH ×2 (00:24→13:02)
[2016-08-23] MEDS: Heparin 5,000 Unit/mL Inj SUBQ SCH ×3 (00:27→17:47)
[2016-08-23] MEDS: Ondansetron 2 mg/mL 2 mL Inj IVPUSH PRN ×3 (03:42→21:24)
[2016-08-23] MEDS ORDERED: Lactated Ringer's 1,000 ML IV SCH (05:00)
[2016-08-23 05:15] VITALS: BP 174/75; PULSE 67; RESP 18; O2SAT 93
[2016-08-23] MEDS: Acetaminophen IV 1,000 MG in IV Premix 1 EACH IV PRN (05:28)
[2016-08-23 05:51] LABS: Magnesium 1.7 mg/dL (1.6-2.6); Phosphorus 2.2 mg/dL (2.5-4.9)
[2016-08-23] MEDS: Lactated Ringer's 1,000 ML IV SCH (06:33)
[2016-08-23 08:05] LABS: BASOPHILS % (AUTO) 0.3 % (0-3); EOSINOPHILS % (AUTO) 6.5 % (0-5); MONOCYTES % (AUTO) 6.4 % (4-12); Mean Corpuscular Hemoglobin 33.3 pg (27.0-35.0); Mean Corpuscular Volume 102.7 fL (81-100); NEUTROPHILS % (AUTO) 74.6 % (40-74); Platelet Count 244 bil/L (150-400)
[2016-08-23 09:54] VITALS: PULSE 68
--- NOTE | 2016-08-23 10:10 | PROG NOTE ---
[address] [address] PROGRESS NOTE PATIENT: KAREN ROMERO : 1935 MR#: [id number] ADMIT: 08/21/2016 JOB ID: [id number] DATE: 08/23/2016 SUBJECTIVE: The patient remains with her NG tube in place. Overnight, stable vital signs, only 250 cc out over the previous 24 hours. She feels subjectively about the same, is not passing much gas, and just passed a little bit of watery stool. OBJECTIVE: Her abdomen is still distended and tympanic. She is not tender. Her labs show that her white count is 9.7, hematocrit is 30. Her x-rays have been obtained, but they have not been read yet. To my review, she continues to have a high-grade partial small bowel obstruction. IMPRESSION AND PLAN: She is now 36 hours without significant improvement. I have recommended that we proceed with surgery today with a laparoscopic lysis of adhesions, possible open. We did discuss other options of continued observation or a Gastrografin challenge, but at this point I think the likelihood of a Gastrografin challenge precipitating problem is about the same as the likelihood of it resolving. On this basis, I have recommended a laparoscopic exploration today and the patient and her daughter agree with the plan. She is on the OR schedule for around noon today.
--- NOTE | 2016-08-23 10:55 | PROG NOTE ---
[address] [address] PROGRESS NOTE PATIENT: KAREN ROMERO : 1935 MR#: [id number] ADMIT: 08/21/2016 JOB ID: [id number] DATE: 08/23/2016 SUBJECTIVE: The patient was scheduled for surgery at around noontime but at around 9:45 went to the bathroom and had a spontaneous large normal bowel movement. She feels completely better subjectively. OBJECTIVE: On examination, her abdomen is markedly less distended, tympani has more or less resolved, and she is requesting to get her nasogastric tube out as soon as possible. ASSESSMENT AND PLAN: Given clinical improvement, we will take her nasogastric tube out and let her start up on liquids, and follow her. I anticipate that she will be able to advance to soft food fairly quickly and likely get out of the hospital tomorrow, possibly even tonight depending on her motivation.
--- NOTE | 2016-08-23 12:34 | PCM.PNMED ---
Subjective Date of Service August 23, 2016 Subjective She feels much better since 9 AM. She had 2 bowel movements this morning. No nausea. She does have an appetite. No chest pain, palpitations or dyspnea. Dr. Meza did see her and she requested had a removal of her NG tube and this was done. Exam Vital Signs Vital Sign - Last Date Time Temp Pulse Resp B/P Pulse Ox O2 Delivery O2 Flow Rate FiO2 08/23/16 09:54 68 08/23/16 08:30 Supplement Oxygen 08/23/16 05:15 36.7 18 174/75 93 2.00 Intake and Output 08/22/16 08/22/16 08/23/16 Cumulative From/Thru 14:59 22:59 06:59 08/21/16 10:51 - 08/23/16 05:15 Intake Total 0 ml 966 ml 0 ml 3366 ml Output Total 475 ml 1250 ml 520 ml 2695 ml Balance -475 ml -284 ml -520 ml 671 ml Intake Oral 0 ml 0 ml 0 ml 0 ml IV Total 966 ml 3366 ml Output Urine Total 475 ml 1000 ml 520 ml 2295 ml Gastric Drainage Total 250 ml 0 ml 400 ml # Voids 3 3 # Bowel Movements 0 1 1 Exam Alert and oriented -3, no distress. Fluent speech Anicteric sclera. Lungs are clear with normal rate and effort Heart is regular without murmur gallop or rub Abdomen soft nontender, flat. Hypoactive bowel tones. Extremities are free of edema. Skin is free of rash or lesions. IVs and Medications Medications Reviewed: Medications were reviewed in detail Lab and Diagnostics Result Diagram: 08/23/16 0503 08/23/16 0503 X-Rays, CTs and MRIs Date of Service: 08/21/16 1216 PROCEDURE: CT ABDOMEN AND PELVIS WITHOUT CONTRAST ([id number]) INDICATIONS: ABd pain ?SBO TECHNIQUE: After the administration of oral contrast, 5 mm thick sections acquired from the diaphragms to the symphysis. 5 mm coronal and sagittal reformats were performed. For radiation dose reduction, the following was used: automated exposure control, adjustment of mA and/or kV according to patient size. COMPARISON: [facility], CR, XR ABD ACUTE SERIES 3VW, 08/21/2016, 11: 30. [facility], CT, ABD/PELVIS W/CON (PNL), 07/03/2007, 12:10. FINDINGS: Image quality: Excellent. ABDOMEN: Lung bases: Bibasilar patchy opacities are present. Heart size is normal. Solid organs: Liver and spleen are normal in size. Gallbladder is surgically absent. Pancreas is normal in size. No adrenal nodules. Both kidneys are normal in size, without hydronephrosis or nephrolithiasis. Peritoneum and bowel: The stomach is moderately distended. The duodenum is mildly distended. There are multiple moderately distended loops of mid small bowel. There is a transition between distended and nondistended distal small bowel within the right posterior pelvis at the site of a focal region of small bowel thickening. Distal small bowel is nondistended. Appendix is normal. The colon is nondistended and demonstrates moderate diffuse stool. Diverticulosis of the descending and sigmoid colon is present. No free fluid or air. Nodes and vessels: No retroperitoneal or mesenteric adenopathy by size criteria. Aorta and inferior vena cava are normal in size. Miscellaneous: No ventral hernias. PELVIS: Genitourinary: Bladder wall thickness is normal. Miscellaneous: No inguinal hernias or adenopathy. Bones: No suspicious bony lesions. No vertebral body compression fractures. IMPRESSION: 1. Small bowel obstruction, with transition point present at a site of thickened small bowel, consistent with ischemia versus infection versus inflammation versus neoplasm. 2. Normal appendix. 3. Bibasilar atelectasis versus pneumonia. Dictated by: Daniel Mason M.D. on 08/21/2016 at 13:23 Approved by: Daniel Mason M.D. on 08/21/2016 at 13:26 Date of Service: 08/22/16 0808 Caution: Report not yet finalized and possibly incomplete! PROCEDURE: X-RAY CHEST ONE VIEW, PORTABLE ([id number]) INDICATIONS: cough TECHNIQUE: One view of the chest was acquired. COMPARISON: [facility], CR, XR ABD ACUTE SERIES 3VW, 08/21/2016, 11: 30. FINDINGS: Surgical changes and devices: Nasogastric tube present tip projected over the gastric antrum. Lungs and pleura: No pleural effusions or pneumothorax. Patchy opacity involving the left lung base similar to prior examination. Mediastinum: Mediastinal contours appear normal. Heart size is enlarged. Bones and chest wall: No suspicious bony lesions. Overlying soft tissues appear unremarkable. IMPRESSION: Left basilar atelectasis versus aspiration or pneumonia. Dictated by: Fredrick Trujillo RRA Interpreted: Nery Zepeda MD on 08/22/2016 at 9: 32 Transcribed by: YULIYA on 08/22/2016 at 9:33 Assessment & Plan #. Small bowel obstruction, POA. Improved. NG tube is removed. We will Hudson a full liquid diet and see how she does. We will follow clinically. #. aspiration ammonia, POA. Improved. Saturations 91% room air. f/u cultures. may have been from vomiting Continue current antibiotics. #. elevated troponin number POA. Clinically she is doing well. No further workup at this time. trended down to normal range no chest pain or dyspnea. no emergent ekg findings. may be secondary to demand ischemia f/u echo. #. acute kidney injury, POA. Likely related to volume depletion. Improving with IV fluids. #. Essential hypertension, POA and stable. #. Hypothyroidism number POA and stable. Disposition: Patient is requesting possible discharge later today. We will see how she does clinically and she can advance her diet. VTE Prophylaxis: Sub-Q Heparin (Unfractionated) VTE Mechanical Devices: Intermittant Pneumatic CD Markel Salamanca MD August 23, 2016 12:34
[2016-08-23 12:48] VITALS: BP 160/69; PULSE 59; RESP 16; O2SAT 95
[2016-08-23] MEDS ORDERED: 0.9% Sodium Chloride 250 ML ONE (12:54)
--- NOTE | 2016-08-23 16:52 | NUR ---
spiritual care; routine brief conversational visit with pt and dtr. pt reflected on recent trip to [place] and both reflected on gratitude and hopefulness at medical progress and surprise change of medical plan (no gi surgery)
--- NOTE | 2016-08-23 18:17 | NUR ---
Bowel Movement, Diet Advance Patient tolerated liquids well after diet advance. Patient has had two bowel movements this shift, hospitalist and surgical team aware. Patient denies any nausea or pain to the abdomen. Care is ongoing.
[2016-08-23 20:07] VITALS: BP 149/70; PULSE 71; RESP 18; O2SAT 92
[2016-08-24] MEDS: Heparin 5,000 Unit/mL Inj SUBQ SCH ×2 (00:59→09:21)
[2016-08-24] MEDS: Piperacillin-Tazo 3.375 Gm Inj 3.375 GM in Dextrose 5% Minibag Plus 50 ML IV SCH (00:59)
--- NOTE | 2016-08-24 03:03 | NUR ---
Bowel function Pt. c/o slight nausea and zofran adm. at 2129 and eff.Abd. soft with BT.,passing flatus.Raegan. po fluids qs with encouragement and UOP qs.Up with SBA and FWW and amb w/o difficulty.Denies pain other then a h/a which was relieved with coffee.Lungs with DBS bilat. and faint crackles to lower lobes,>R then L.Has intermittent prod. cough of cl. sputum.Sats on RA in the mid 90s yet drop to the high 80s when asleep.2L O2 adm. at HS and sats maintained in the low to mid 90s.Cooperative with pulmonary toilet yet needs encouragement.Sleeping soundly at this time and resting comfortably.Will cont. to monitor.
[2016-08-24 05:25] VITALS: BP 131/68; PULSE 69; RESP 17; O2SAT 94
[2016-08-24 09:29] VITALS: BP 148/71; PULSE 70; RESP 18; O2SAT 95
--- NOTE | 2016-08-24 09:35 | DRSVH ---
PROCEDURE: X-RAY ACUTE ABDOMINAL SERIES ([id number]) INDICATIONS: SMALL BOWEL OBSTRUCTION TECHNIQUE: One view chest and two views of the abdomen were acquired. COMPARISON: [facility], CR, XR ABD ACUTE SERIES 3VW, 08/21/2016, 11:30. FINDINGS: Surgical changes and devices: Enteric tube with tip projected over the distal stomach. Surgical clips RUQ. Lower lumbar spine postoperative change. Chest: Small left pleural effusion with associated basilar pulmonary opacities. Heart size is normal. No pneumoperitoneum. Abdomen: Persistent mildly dilated loops of small bowel with air-fluid levels. No suspicious calcifi cations. Visualized solid organ contours appear normal. Bones: Thoracolumbar curvature and postoperative change. IMPRESSION: 1. Persistent small bowel obstruction. 2. New enteric tube with tip in the distal stomach. 3. Small left pleural effusion with left basal atelectasis or less likely infection. Dictated by: Stas Hylton M.D. on 08/23/2016 at 8:19 Approved by: Stas Hylton M.D. on 08/23/2016 at 8:22
--- NOTE | 2016-08-24 10:24 | NUR ---
Social Work: Discharge Data: Pt is on day 3 of hospitalization. EMR reviewed. D/C orders are in. No d/c planning needs at this time. DAIRY MANAGER will continue to follow if needs arise. Assessment: Pt who is independent at baseline. Plan: Pt will d/c home via POV today. No d/c planning needs at this time. DAIRY MANAGER will continue to follow if needs arise. HERBIE Simon
--- NOTE | 2016-08-24 10:24 | PCM.DIMED ---
Discharge Instructions Date of Service August 24, 2016 Dates of Hospitalization August 21, 2016 at 13:47 Discharge Diagnosis Discharge Diagnosis #. Small bowel obstruction, POA. Resolved. #. aspiration ammonia, POA. Improved. #. acute kidney injury, resolved. #. Essential hypertension. #. Hypothyroidism number. Diet Other (soft mechanical) Activity No restrictions Call your provider Fever or Chills, Shortness of breath, Other (abdomen pain or vomiting) Patient Instructions Follow-up Provider: Eliseo Rodríguez MD Follow-up with PCP in: 2 weeks Markel Salamanca MD August 24, 2016 10:24
[2016-08-24] MEDS ORDERED: AMOX-366 PO (10:25)
--- NOTE | 2016-08-24 10:47 | NUR ---
Evaluation completed. Please go to "Notes" then click on "Assessments and Notes" (bottom left corner of screen). Then select appropriate discipline tab on top of screen.
--- NOTE | 2016-08-24 12:57 | PCM.DC.MED ---
Discharge Summary Date of Service August 24, 2016 Dates of Hospitalization Date of Hospital Admission August 21, 2016 at 13:47 Date of Discharge: August 24, 2016 Providers: Admitting Physician: Dino Bryson MD Primary Care Physician: Eliseo Rodríguez MD Attending Physician: Dino Bryson MD Diagnosis at Time of Discharge Diagnosis at Time of Discharge #. Small bowel obstruction, POA. Resolved. #. aspiration ammonia, POA. Improved. #. acute kidney injury, resolved. #. Essential hypertension. #. Hypothyroidism number. Consultations Dr Meza, general surgery Procedures XRay, CTs & MRIs Date of Service: 08/21/16 1216 PROCEDURE: CT ABDOMEN AND PELVIS WITHOUT CONTRAST ([id number]) INDICATIONS: ABd pain ?SBO TECHNIQUE: After the administration of oral contrast, 5 mm thick sections acquired from the diaphragms to the symphysis. 5 mm coronal and sagittal reformats were performed. For radiation dose reduction, the following was used: automated exposure control, adjustment of mA and/or kV according to patient size. COMPARISON: [facility], CR, XR ABD ACUTE SERIES 3VW, 08/21/2016, 11: 30. [facility], CT, ABD/PELVIS W/CON (PNL), 07/03/2007, 12:10. FINDINGS: Image quality: Excellent. ABDOMEN: Lung bases: Bibasilar patchy opacities are present. Heart size is normal. Solid organs: Liver and spleen are normal in size. Gallbladder is surgically absent. Pancreas is normal in size. No adrenal nodules. Both kidneys are normal in size, without hydronephrosis or nephrolithiasis. Peritoneum and bowel: The stomach is moderately distended. The duodenum is mildly distended. There are multiple moderately distended loops of mid small bowel. There is a transition between distended and nondistended distal small bowel within the right posterior pelvis at the site of a focal region of small bowel thickening. Distal small bowel is nondistended. Appendix is normal. The colon is nondistended and demonstrates moderate diffuse stool. Diverticulosis of the descending and sigmoid colon is present. No free fluid or air. Nodes and vessels: No retroperitoneal or mesenteric adenopathy by size criteria. Aorta and inferior vena cava are normal in size. Miscellaneous: No ventral hernias. PELVIS: Genitourinary: Bladder wall thickness is normal. Miscellaneous: No inguinal hernias or adenopathy. Bones: No suspicious bony lesions. No vertebral body compression fractures. IMPRESSION: 1. Small bowel obstruction, with transition point present at a site of thickened small bowel, consistent with ischemia versus infection versus inflammation versus neoplasm. 2. Normal appendix. 3. Bibasilar atelectasis versus pneumonia. Dictated by: Daniel Mason M.D. on 08/21/2016 at 13:23 Approved by: Daniel Mason M.D. on 08/21/2016 at 13:26 Date of Service: 08/22/16 0808 Caution: Report not yet finalized and possibly incomplete! PROCEDURE: X-RAY CHEST ONE VIEW, PORTABLE ([id number]) INDICATIONS: cough TECHNIQUE: One view of the chest was acquired. COMPARISON: [facility], CR, XR ABD ACUTE SERIES 3VW, 08/21/2016, 11: 30. FINDINGS: Surgical changes and devices: Nasogastric tube present tip projected over the gastric antrum. Lungs and pleura: No pleural effusions or pneumothorax. Patchy opacity involving the left lung base similar to prior examination. Mediastinum: Mediastinal contours appear normal. Heart size is enlarged. Bones and chest wall: No suspicious bony lesions. Overlying soft tissues appear unremarkable. IMPRESSION: Left basilar atelectasis versus aspiration or pneumonia. Dictated by: Fredrick Trujillo [facility] Interpreted: Nery Zepeda MD on 08/22/2016 at 9: 32 Transcribed by: YULIYA on 08/22/2016 at 9:33 Cardiac Echo Impression Interpretation Summary The left ventricle is normal in size. There appears to be moderate to severe hypokinesis of distal posterolateral wall. The ejection fraction is estimated to be 55-60%. The right ventricle is normal in size and function. There is moderate mitral regurgitation. There is mild to moderate aortic regurgitation. There is mild tricuspid regurgitation. The right ventricular systolic pressure is estimated at 42 mmHg assuming a right atrial pressure of 3 mm Hg. The ascending aorta is mildly enlarged. Invasive Procedures None Brief History 81yo lady with reported hx of htn, hypothyroidism, hld, depression vacationing in [place] over the past few days. 3 days ago started not feeling well. generalized abd pain, dec appetitie and po intake, nausea, vomiting. has not had bowel movement or passed significant gas to her knowledge in the past 3- 4 days. feels a little relief with ng tube placed. denies chest pain, dypsnea. has some chills earlier. has not had bowel obstructions before. reports a normal colonoscopy in the past. hx of cosmetic abdominal surgery and cholecystectomy. Hospital Course #. Small bowel obstruction, POA. Improved. NG tube is removed. We will Hudson a full liquid diet and see how she does. We will follow clinically. She continued to do well and advanced diet without difficulty. She is felt to be stable for discharge on the day of discharge and really did not desire to go home. #. aspiration ammonia, POA. Improved. Saturations 91% room air. f/u cultures. may have been from vomiting Continue current antibiotics. #. elevated troponin number POA. Clinically she is doing well. No further workup at this time. trended down to normal range no chest pain or dyspnea. no emergent ekg findings. may be secondary to demand ischemia f/u echo. Her echo was unremarkable. She had no chest pain or other evidence of cardiac decompensation. No further workup at this time. #. acute kidney injury, POA. Likely related to volume depletion. This improved with fluid resuscitation. No other difficulties noted. #. Essential hypertension, POA and stable. She remained stable on the hospital. #. Hypothyroidism number POA and stable. He is felt to be stable to discharge home with the support of her 2 daughters. Exam Vital Signs (Last) Date Time Temp Pulse Resp B/P Pulse Ox O2 Delivery O2 Flow Rate FiO2 08/24/16 09:29 36.8 70 18 148/71 95 Room Air 08/23/16 12:48 2.00 Exam Patient was seen and examined and admitted discharge. Her abdomen was flat and benign. Nontender. Test 08/21/16 10:55 08/21/16 17:45 08/22/16 02:20 08/22/16 05:10 Lactic Acid Level 2.0mmol/L (0.4-2.0) Thyroid Stimulating Hormone (TSH) 3.080uIU/mL (0.450-4.500) Urine Color Yellow (YELLOW) Urine Appearance Hazy (CLEAR,HAZY) Urine pH 5.5 (5.0-8.0) Urine Specific [place] 1.020 (1.003-1.035) Urine Protein Tracemg/dL (NEG,TRACE) Urine Glucose (UA) Negativemg/dL (NEGATIVE) Urine Ketones Tracemg/dL (NEGATIVE) Urine Occult Blood Small (NEGATIVE) Urine Nitrite Negative (NEGATIVE) Urine Bilirubin Negative (NEGATIVE) Urine Urobilinogen Normalmg/dL (NORMAL) Urine Leukocyte Esterase Negative (NEGATIVE) Urine RBC 3-10/hpf (0-2) Urine WBC 0-5/hpf (0-5) Urine Epithelial Cells Occasional/hpf (NONE-MOD) Urine Crystals None seen (NONE SEEN) Urine Bacteria Few/hpf (NONE-FEW) Urine Hyaline Casts 5/20/lpf (NONE) Urine Granular Casts Rare (NONE SEEN) Urine Waxy Casts None seen (NONE SEEN) Urine Red Blood Cell Casts None seen (NONE SEEN) Urine White Blood Cell Casts None seen (NONE SEEN) Urine Mucus Present (None Seen) Urine Trichomonas None seen (NONE SEEN) Urine Yeast None (NONE SEEN) Urinalysis Comment None Urine Culture Reflexed Not indicated Troponin T 0.010ug/L (0.0-0.011) Prothrombin Time 10.6sec (8.1-12.5) Prothromb Time International Ratio 0.99ratio Hemoglobin A1c 5.3% (4.8-5.6) Total Bilirubin 0.9mg/dL (0.0-1.2) Aspartate Amino Transf (AST/SGOT) 33U/L (0-50) Alanine Aminotransferase (ALT/SGPT) 29U/L (0-32) Alkaline Phosphatase 54U/L (25-165) Total Protein 5.6g/dL (6.4-8.4) Albumin 3.4g/dL (3.4-5.0) Triglycerides Level 85mg/dL (0-149) Cholesterol Level 155mg/dL (100-199) LDL Cholesterol, Calculated 70.000mg/dL (0-99) VLDL Cholesterol 17.000mg/dL HDL Cholesterol 68mg/dL (>39) Cholesterol/HDL Ratio 2.28 (0.0-4.4) Test 08/23/16 05:03 White Blood Count 9.7th/mm3 (3.8-10.1) Red Blood Count 3.00mil/mm3 (3.90-5.20) Hemoglobin 10.0g/dL (12.0-15.6) Hematocrit 30.8% (35.0-46.0) Mean Corpuscular Volume 102.7fL (81-100) Mean Corpuscular Hemoglobin 33.3pg (27.0-35.0) Mean Corpuscular Hemoglobin Concent 32.5% (32.0-37.0) Red Cell Distribution Width 12.3% (12.3-15.4) Platelet Count 244bil/L (150-400) Neutrophils (%) (Auto) 74.6% (40-74) Lymphocytes (%) (Auto) 11.9% (14-46) Monocytes (%) (Auto) 6.4% (4-12) Eosinophils (%) (Auto) 6.5% (0-5) Basophils (%) (Auto) 0.3% (0-3) Sodium Level 137mEq/L (134-144) Potassium Level 3.5mEq/L (3.5-5.2) Chloride Level 98mEq/L (97-108) Carbon Dioxide Level 24mmol/L (18-29) Blood Urea Nitrogen 22mg/dL (8-27) Creatinine 0.94mg/dL (0.57-1.00) Estimat Glomerular Filtration Rate 82mL/min (>59) Glucose Level 97mg/dL (60-99) Calcium Level 9.7mg/dL (8.5-10.1) Phosphorus Level 2.2mg/dL (2.5-4.9) Magnesium Level 1.7mg/dL (1.6-2.6) Discharge Medications Discharge Medications Amoxicillin/Clav K 875-125 mg (Augmentin 875-125 mg) 1 Each Tablet 1 TABLET PO BID Prescribed by: MARKEL GARCIA MD Aspirin (Aspirin) 81 Mg Tablet 81 MG PO DAILY (Reported) Celecoxib (Celecoxib) 200 Mg Capsule 200 MG PO DAILY (Reported) Cholecalciferol (Vitamin D3) (Vitamin D3) 2,000 Unit Capsule 2,000 UNIT PO DAILY (Reported) Docusate Sodium (Colace) 100 Mg Capsule 200 MG PO DAILY (Reported) Fluoxetine (Prozac) 20 Mg Capsule 20 MG PO DAILY (Reported) Gabapentin (Gabapentin) 300 Mg Capsule 300 MG PO HS (Reported) Levothyroxine (Synthroid) 75 Mcg Tablet 75 MCG PO DAILY (Reported) Multivitamin/Iron/Folic Acid (Centrum Complete Multivit Tab) 1 Each Tablet 1 TAB PO DAILY (Reported) Propranolol ER (Propranolol ER) 60 Mg Cap.sa.24h 60 MG PO DAILY (Reported) Vitamin E Mixed (Vitamin E) 400 Unit Capsule 400 UNIT PO DAILY (Reported) As needed ([Citrucel]) 1 TAB PO DIRECTED PRN PRN For Constipation (Reported) Acetaminophen (Acetaminophen) 325 Mg Tablet 650 MG PO NOON PRN PRN For Pain ( Reported) Miscellaneous Medications Triamterene/HCTZ 75-50 mg (Triamterene/HCTZ 75-50 mg) 1 Each Tablet 1 TABLET PO (Reported) Followup Plan Disposition: Home, with family Discharge Diet: Other (soft mechanical) Discharge Activity: No restrictions Follow-up Provider: Eliseo Rodríguez MD Follow-up with PCP in: 2 weeks Time spent 45 minutes Markel Garcia MD August 24, 2016 12:57
--- NOTE | 2016-08-24 13:00 | NUR ---
DC Pt up with SBA FWW steady gait. Tolerating small soft foods at this time. Denies nausea. BT WNL. IV removed. Pt educated and encouraged to continues deep breathing exercises and IS. All DC instructions reviewed with pt and daughter. Per pt and daughter all instructions understood. Prescription in hand. Pt transported viw WC to front entrance for pickup by daughter. Home with family. Care discontinues
== END 2016-08-24 12:40 | disposition home or self-care (01) | DRG 388 ==
LOC: SED 10:47 → OSC 13:47
PROVIDERS: ADMIT Family Medicine; ATTEND Family Medicine
DX: K56.60 Unspecified intestinal obstruction (principal); J69.0 Pneumonitis due to inhalation of food and vomit; N17.9 Acute kidney failure, unspecified; I24.8 Other forms of acute ischemic heart disease; I10 Essential (primary) hypertension; E03.9 Hypothyroidism, unspecified; E78.5 Hyperlipidemia, unspecified; Z87.891 Personal history of nicotine dependence; F32.9 Major depressive disorder, single episode, unspecified